=== PATIENT | female | born 1940 | race Caucasian/White ===

== ENCOUNTER 2021-04-29 19:15 | Emergency (ER) | payer MEDICARE, OTHER ==
[2021-04-29] MEDS ORDERED: Sodium Chloride 0.9% 10 ML Syringe FLUSH PRN (19:16)
--- NOTE | 2021-04-29 19:30 | EDM.PDOC ---
ED HPI GENERAL MEDICAL PROBLEM - General Chief Complaint: Cardiovascular Problem Stated Complaint: CHEST PAIN Time Seen by Provider: 04/29/21 19:18 Source of Information: Reports: Patient, EMS History Limitations: Reports: No Limitations - History of Present Illness INITIAL COMMENTS - FREE TEXT/NARRATIVE: 80 YO WF PRESENTS TO ER BY EMS COMPLAINING OF RIGHT SIDED CHEST PAIN AND INCREASED LOWER EXTREMITY SWELLING WHICH BEGAN TODAY. PT REPORTS SHE WAS TRAVELLING WITH HER FAMILY FROM [place] BY CAR FOR THE LAST 3 DAYS AND JUST RETURNED HOME TODAY. PT WITH PMH OF NIDDM, CAD, HYPERLIPIDEMIA AND CARDIAC ARRHYTHMIA FOR WHICH SHE TAKES AMIODARONE. PT DENIES SHORTNESS OF BREATH, NO DIZZINESS, NO NAUSEA/VOMITING. PT DENIES ANY RECENT ILLNESS- NO COUGH/CONGESTION OR FEVER/CHILLS. PT REPORTS SHE HAS BEEN CONSTIPATED OVER THE LAST 3 DAYS. PT DENIES DIAPHORESIS. PT REPORTS RIGHT SIDED CHEST PAIN IS CHARACTERIZED BY SORENESS WITHOUT RADIATION TO ARM, BACK, OR JAW. Onset: Today Location: Reports: Chest, Lower Extremity, Left, Lower Extremity, Right Quality: Reports: Ache Severity: Mild Improves with: Reports: None Worsens with: Reports: None Associated Symptoms: Reports: Chest Pain, Weakness. Denies: Cough, Fever/Chills, Nausea/Vomiting, Shortness of Breath, Syncope - Related Data Allergies Allergy/AdvReac Type Severity Reaction Status Date / Time No Known Drug Allergies Allergy Cannot Verified 02/27/18 21:36 Remember Home Meds: Home Meds Simvastatin 40 mg PO DAILY 04/13/14 [History] SitaGLIPtin [Januvia] 100 mg PO DAILY 04/13/14 [History] metFORMIN [Glucophage] 1,000 mg PO BEDTIME 04/13/14 [History] metFORMIN [Glucophage] 1,500 mg PO QAM 04/13/14 [History] Famotidine 20 mg PO BID 07/18/15 [History] Gabapentin 200 mg PO DAILY 12/22/15 [History] Dapagliflozin Propanediol [Farxiga] 5 mg PO DAILY 02/27/18 [History] Furosemide 20 mg PO SUTUTH 02/27/18 [History] Furosemide [Lasix] 40 mg PO MOWEFRSA 02/27/18 [History] Gabapentin [Neurontin] 100 mg PO BEDTIME 02/27/18 [History] Lisinopril 2.5 mg PO DAILY 02/27/18 [History] Metoprolol Succinate 25 mg PO DAILY 02/27/18 [History] Past Medical History HEENT History: Reports: Cataract, Impaired Vision Cardiovascular History: Reports: Heart Murmur, High Cholesterol, Hypertension, Other (See Below) Other Cardiovascular History: reports is aware of IRR HR Gastrointestinal History: Reports: GERD Genitourinary History: Reports: None TAX CLERK History: Reports: Musculoskeletal History: Reports: Back Pain, Chronic, Osteoarthritis Neurological History: Reports: None Endocrine/Metabolic History: Reports: Diabetes, Type II, Obesity/BMI 30+ Hematologic History: Reports: Blood Transfusion(s) - Infectious Disease History Infectious Disease History: Reports: Measles, Mumps, Pertussis (Whooping Cough) - Past Surgical History HEENT Surgical History: Reports: Cataract Surgery, Tonsillectomy Endocrine Surgical History: Reports: Thyroid Biopsy Social & Family History - Caffeine Use Caffeine Use: Reports: Coffee Caffeine Use Comment: "alot of it" ED ROS GENERAL - Review of Systems Review Of Systems: See Below Constitutional: Reports: No Symptoms HEENT: Reports: No Symptoms Respiratory: Reports: No Symptoms Cardiovascular: Reports: Chest Pain, Dyspnea on Exertion. Denies: PND, Syncope Endocrine: Reports: No Symptoms GI/Abdominal: Reports: No Symptoms : Reports: No Symptoms Musculoskeletal: Reports: No Symptoms Skin: Reports: No Symptoms Neurological: Reports: No Symptoms Psychiatric: Reports: No Symptoms Hematologic/Lymphatic: Reports: No Symptoms Immunologic: Reports: No Symptoms ED EXAM, GENERAL - Physical Exam Exam: See Below Exam Limited By: No Limitations General Appearance: Alert, WD/WN, No Apparent Distress Head: Atraumatic, Normocephalic Neck: Normal Inspection, Supple, Non-Tender, Full Range of Motion Respiratory/Chest: No Respiratory Distress, Lungs Clear, Normal Breath Sounds, No Accessory Muscle Use, Chest Non-Tender Cardiovascular: Normal Peripheral Pulses, Regular Rate, Rhythm, No Edema, No Gallop, No JVD, No Murmur, No Rub GI/Abdominal: Normal Bowel Sounds, Soft, Non-Tender, No Organomegaly, No Distention, No Abnormal Bruit, No Mass Back Exam: Normal Inspection, Full Range of Motion, NT Extremities: Normal Inspection, Normal Range of Motion, Non-Tender, Normal Capillary Refill, Pedal Edema Neurological: Alert, Oriented, CN II-XII Intact, Normal Cognition, Normal Gait, Normal Reflexes, No Motor/Sensory Deficits Psychiatric: Normal Affect, Normal Mood Skin Exam: Warm, Dry, Intact, Normal Color, No Rash Lymphatic: No Adenopathy #1 Interpretation EKG Date: 04/29/21 Time: 19:30 Rhythm: NSR Rate (Beats/Min): 89 [place]: Normal P-Wave: Present QRS: Normal ST-T: Normal QT: Normal Course - Vital Signs Last Recorded V/S: Last Vital Signs Temp 96.8 F L 04/29/21 19:20 Pulse 90 04/29/21 21:00 Resp 22 H 04/29/21 21:00 BP 124/49 L 04/29/21 21:00 Pulse Ox 96 04/29/21 21:00 - Orders/Labs/Meds Orders: Active Orders 24 hr Category Date Time Status Cardiac Monitoring [RC] . DIRECTED Care 04/29/21 19:16 Active Peripheral IV Care [RC] . DIRECTED Care 04/29/21 19:16 Active Chest 1V Frontal [CR] Stat Exams 04/29/21 19:17 Ordered Sodium Chloride 0.9% [Saline Flush] Med 04/29/21 19:16 Active 10 ml FLUSH Q8HR PRN Peripheral IV Insertion Adult [OM.PC] Routine Oth 04/29/21 19:16 Ordered EKG 12 Lead [EK] Stat Ther 04/29/21 19:16 Ordered Medication Orders Sodium Chloride (Sodium Chloride 0.9% 10 Ml Syringe) 10 ml FLUSH Q8HR PRN PRN Reason: keep vein open Labs: Laboratory Tests 04/29/21 04/29/21 04/29/21 Range/Units 19:40 19:40 19:40 WBC 10.66 H (5.00-10.00) 10^3/uL RBC 5.39 (3.80-5.50) 10^6/uL Hgb 11.9 L D (12.0-16.0) g/dL Hct 38.8 (37.0-47.0) % MCV 72.0 L D (82.0-92.0) fL MCH 22.1 L (27.0-31.0) pg MCHC 30.7 L (32.0-36.0) g/dL RDW 20.0 H (11.5-14.5) % Plt Count 382 D (150-400) 10^3/uL MPV 9.0 (7.4-10.4) fL Immature Gran % (Auto) 0.2 (0.0-5.0) % Neut % (Auto) 76.3 H (50.0-70.0) % Lymph % (Auto) 16.8 L (20.0-40.0) % [place] % (Auto) 5.3 (2.0-8.0) % Eos % (Auto) 1.3 (1.0-3.0) % Baso % (Auto) 0.1 (0.0-1.0) % Neut # (Auto) 8.13 H (2.50-7.00) 10^3/uL Lymph # (Auto) 1.79 (1.00-4.00) 10^3/uL [place] # (Auto) 0.57 (0.10-0.80) 10^3/uL Eos # (Auto) 0.14 (0.10-0.30) 10^3/uL Baso # (Auto) 0.01 (0.00-0.10) 10^3/uL Immature Gran # (Auto) 0.02 (0.00-0.50) 10^3/uL Platelet Estimate Adequate Anisocytosis 1+ slight Microcytosis 1+ slight Target Cells Few PT (9.2-11.2) SEC INR (0.9-1.1) APTT (22.8-31.4) SEC D-Dimer, Quantitative 580 H (<400) ng/mL Sodium 140 (136-145) mmol/L Potassium 4.0 (3.5-5.1) mmol/L Chloride 103 (98-107) mmol/L Carbon Dioxide 25.0 (21.0-32.0) mmol/L Anion Gap 16.0 H (5-15) mmol/L BUN 18 (7-18) mg/dL Creatinine 0.90 (0.51-1.17) mg/dL Est Cr Clr Drug Dosing 43.37 mL/min Estimated GFR (MDRD) 60 mL/min Glucose 301 H (70-140) mg/dL Calcium 8.8 (8.7-10.3) mg/dL Total Bilirubin 0.3 (0.2-1.0) mg/dL AST 28 (15-37) U/L ALT 45 (14-63) U/L Alkaline Phosphatase 123 H (46-116) U/L Troponin I High Sens 6.500 (0-51.000) pg/mL B-Natriuretic Peptide 29 (0-100) pg/mL Total Protein 7.3 (6.4-8.2) g/dL Albumin 3.28 L (3.40-5.00) g/dL // Range/Units 19:40 WBC (5.00-10.00) 10^3/uL RBC (3.80-5.50) 10^6/uL Hgb (12.0-16.0) g/dL Hct (37.0-47.0) % MCV (82.0-92.0) fL MCH (27.0-31.0) pg MCHC (32.0-36.0) g/dL RDW (11.5-14.5) % Plt Count (150-400) 10^3/uL MPV (7.4-10.4) fL Immature Gran % (Auto) (0.0-5.0) % Neut % (Auto) (50.0-70.0) % Lymph % (Auto) (20.0-40.0) % [place] % (Auto) (2.0-8.0) % Eos % (Auto) (1.0-3.0) % Baso % (Auto) (0.0-1.0) % Neut # (Auto) (2.50-7.00) 10^3/uL Lymph # (Auto) (1.00-4.00) 10^3/uL [place] # (Auto) (0.10-0.80) 10^3/uL Eos # (Auto) (0.10-0.30) 10^3/uL Baso # (Auto) (0.00-0.10) 10^3/uL Immature Gran # (Auto) (0.00-0.50) 10^3/uL Platelet Estimate Anisocytosis Microcytosis Target Cells PT 10.9 (9.2-11.2) SEC INR 1.0 (0.9-1.1) APTT 24.7 (22.8-31.4) SEC D-Dimer, Quantitative (<400) ng/mL Sodium (136-145) mmol/L Potassium (3.5-5.1) mmol/L Chloride (98-107) mmol/L Carbon Dioxide (21.0-32.0) mmol/L Anion Gap (5-15) mmol/L BUN (7-18) mg/dL Creatinine (0.51-1.17) mg/dL Est Cr Clr Drug Dosing mL/min Estimated GFR (MDRD) mL/min Glucose (70-140) mg/dL Calcium (8.7-10.3) mg/dL Total Bilirubin (0.2-1.0) mg/dL AST (15-37) U/L ALT (14-63) U/L Alkaline Phosphatase (46-116) U/L Troponin I High Sens (0-51.000) pg/mL B-Natriuretic Peptide (0-100) pg/mL Total Protein (6.4-8.2) g/dL Albumin (3.40-5.00) g/dL Meds: Medications Generic Name Dose Route Start Last Admin Trade Name Freq PRN Reason Stop Dose Admin Sodium Chloride 10 ml 04/29/21 19:16 Sodium Chloride 0.9% 10 Ml Syringe FLUSH Q8HR PRN keep vein open - Radiology Interpretation Free Text/Narrative:: CXR- NAD - Re-Assessments/Exams Free Text/Narrative Re-Assessment/Exam: 04/29/21 21:33 PT REPORTS PAIN RESOLVED AFTER LARGE BOWEL MOVEMENT PT DENIES ANY SHORTNESS OF BREATH DISCUSSED CASE WITH NAHEED KRISHNAMURTHY- WHO AGREED WITH DDISCHARGE AND FOLLOW P IN CLINIC THIS WEEK FOR RE-EVALUATION Departure - Departure Time of Disposition: 21:33 Disposition: Home, Self-Care 01 Condition: Good Clinical Impression: Atypical chest pain, Peripheral edema Instructions: Nonspecific Chest Pain, Adult, Edema Referrals: Darrell De Oliveira MD [Primary Care Provider] - Forms: ED Department Discharge Additional Instructions: 1. DISCHARGE HOME 2. INCREASE LASIX TO DAILY OPPOSED TO EVERY OTHER DAY UNTIL LOWER EXTREMITY SWELLING IMPROVES 3. RETURN TO ER FOR WORSENING CHEST PAIN OR ANY SHORTNESS OF BREATH 4. CONTINUE CURRENT HOME MEDICATIONS INCLUDING ELIQUIS 5. FOLLOW UP AT [facility] THIS WEEK FOR RECHECK Sepsis Event Note (ED) - Focused Exam Vital Signs: Vital Signs Temp Pulse Resp BP Pulse Ox 04/29/21 21:00 90 22 H 124/49 L 96 04/29/21 20:45 85 23 H 122/49 L 94 L 04/29/21 20:30 84 18 136/61 95 04/29/21 20:15 87 19 154/70 H 97 04/29/21 19:45 88 22 H 124/71 97 04/29/21 19:20 96.8 F L 93 20 124/71 95 - My Orders Last 24 Hours: My Active Orders 04/29/21 19:16 Cardiac Monitoring [RC] . DIRECTED Peripheral IV Care [RC] . DIRECTED Sodium Chloride 0.9% [Saline Flush] 10 ml FLUSH Q8HR PRN Peripheral IV Insertion Adult [OM.PC] Routine EKG 12 Lead [EK] Stat 04/29/21 19:17 Chest 1V Frontal [CR] Stat - Assessment/Plan Last 24 Hours: My Active Orders 04/29/21 19:16 Cardiac Monitoring [RC] . DIRECTED Peripheral IV Care [RC] . DIRECTED Sodium Chloride 0.9% [Saline Flush] 10 ml FLUSH Q8HR PRN Peripheral IV Insertion Adult [OM.PC] Routine EKG 12 Lead [EK] Stat 04/29/21 19:17 Chest 1V Frontal [CR] Stat Assessment:: 1. PERIPHERAL EDEMA 2. ATYPICAL CHEST PAIN- RESOLVED AFTER BOWEL MOVEMENT Plan: 1. DISCHARGE HOME 2. INCREASE LASIX TO DAILY OPPOSED TO EVERY OTHER DAY UNTIL LOWER EXTREMITY SWELLING IMPROVES 3. RETURN TO ER FOR WORSENING CHEST PAIN OR ANY SHORTNESS OF BREATH 4. CONTINUE CURRENT HOME MEDICATIONS INCLUDING ELIQUIS 5. FOLLOW UP AT [facility] THIS WEEK FOR RECHECK
[2021-04-29 20:11] LABS: PTT,PARTIAL THROMBOPLSTIN TIME 24.7 SEC (22.8-31.4)
[2021-04-29 21:42] VITALS: BP 142/58; PULSE 91
--- NOTE | 2021-04-30 08:52 | CR ---
[id number] RAD/RAD Chest Portable EXAM: RAD Chest Portable INDICATION: CHEST PAIN COMPARISON: None. DISCUSSION/IMPRESSION: Cardiomediastinal silhouette is normal in size and contour. Lungs are clear. No pleural effusion or pneumothorax. Liam Goodman MD 04/30/21 0850 Thank you for allowing us to participate in the care of your patient.
== END 2021-04-29 22:42 | disposition home or self-care (01) ==
LOC: KA.ED 19:15
DX: R07.89 Other chest pain (principal); R60.0 Localized edema; I10 Essential (primary) hypertension; E11.9 Type 2 diabetes mellitus without complications; Z79.899 Other long term (current) drug therapy
CPT/HCPCS: 36415; 71045; 80053; 83880; 84484; 85025; 85379; 85610; 85730; 93005; 93010; 99284; 99285-25

== ENCOUNTER 2022-12-18 07:50 | Day surgery (SDC) | payer MEDICARE, OTHER ==
[2022-12-18] MEDS ORDERED: Sodium Chloride 0.9% 10 ML Syringe FLUSH PRN (08:00)
[2022-12-18 08:46] LABS: GLUCOSE,POC 101 mg/dL (70-140)
[2022-12-18] MEDS: Sodium Chloride 0.9% 1,000 ML IV SCH (09:14)
[2022-12-18 09:27] LABS: HEMOGLOBIN 9.6 g/dL (12.0-16.0)
[2022-12-18] MEDS ORDERED: Midazolam 1 MG/ML 2 ML SDV ONE (09:33)
[2022-12-18] MEDS ORDERED: Propofol 200 MG/20 ML SDV ONE (09:33)
[2022-12-18 11:20] VITALS: BP 145/64; PULSE 59
== END 2022-12-18 12:03 ==
LOC: KA.SDS 07:50
PROVIDERS: ATTEND Family Medicine
DX: D50.9 Iron deficiency anemia, unspecified (principal); K31.89 Other diseases of stomach and duodenum; K29.50 Unspecified chronic gastritis without bleeding; K57.30 Diverticulosis of large intestine without perforation or abscess without bleeding; I13.0 Hypertensive heart and chronic kidney disease with heart failure and stage 1 through stage 4 chronic kidney disease, or unspecified chronic kidney disease; N18.30 Chronic kidney disease, stage 3 unspecified; E11.22 Type 2 diabetes mellitus with diabetic chronic kidney disease; E78.00 Pure hypercholesterolemia, unspecified; I50.32 Chronic diastolic (congestive) heart failure; E11.51 Type 2 diabetes mellitus with diabetic peripheral angiopathy without gangrene; I48.0 Paroxysmal atrial fibrillation; M17.0 Bilateral primary osteoarthritis of knee; Z79.82 Long term (current) use of aspirin; Z79.01 Long term (current) use of anticoagulants; Z79.84 Long term (current) use of oral hypoglycemic drugs; Z79.899 Other long term (current) drug therapy
CPT/HCPCS: 00813; 36416; 82947; 85018; J2250; J2704; J7030